=== PATIENT | female | born 1975 | race Caucasian/White ===

== ENCOUNTER 2025-05-19 15:40 | Emergency (ER) | payer OTHER, MEDICAID ==
[~2025-05-19] VITALS: Ht 165.1 cm; Wt 84.0 kg
[2025-05-19 15:43] VITALS: O2SAT 97
[2025-05-19 16:30] LABS: BASOPHILS % 0.4 % (0.0-2.0); EOSINOPHILS % 0.2 % (0.0-5.0); HEMATOCRIT. 45.1 % (36.0-48.0); HEMOGLOBIN. 14.9 g/dL (12.0-16.0); LYMPHOCYTES % 9.5 % (20.0-50.0); MEAN CORPUSCULAR HEMOGLOBIN 29.5 pg (28.0-32.0); MEAN CORPUSCULAR VOLUME 89.4 fL (81.0-99.0); MEAN PLATELET VOLUME 9.4 fl (7.4-10.4); MONOCYTES % 4.8 % (2.0-8.0); NEUTROPHILS % 85.1 % (40.0-76.0); PLATELET 229 x1000/uL (130-400); RED BLOOD CELL COUNT 5.05 mill/uL (4.2-5.4); RED CELL DISTRIBUTION WIDTH 14.7 % (11.6-14.6); WHITE BLOOD COUNT 12.2 x1000/uL (4.5-11.0)
[2025-05-19 16:33] LABS: CHLORIDE 107 mEq/L (98-107); POTASSIUM 3.5 mEq/L (3.5-5.1); SODIUM 137 mEq/L (136-145)
[2025-05-19 16:34] LABS: CALCIUM 10.7 mg/dL (8.7-10.4); CARBON DIOXIDE 22 mEq/L (21-32)
[2025-05-19 16:38] LABS: CREATININE 0.8 mg/dL (0.6-1.0)
[2025-05-19 16:39] LABS: ETHANOL BLOOD < 10 mg/dL (<10); GLUCOSE 120 mg/dL (70-105); HCG SCREEN NEGATIVE; UREA NITROGEN BLOOD 14 mg/dL (9-23)
[2025-05-19 16:40] LABS: ALANINE AMINOTRANSFERASE 20 IU/L (10-49); ALBUMIN 5.1 g/dL (3.2-4.8); ASPARTATE AMINOTRANSFERASE 25 IU/L (<34)
[2025-05-19 16:41] LABS: BILIRUBIN DIRECT 0.1 mg/dL (<=3.0); BILIRUBIN TOTAL 0.4 mg/dL (0.1-1.0); PROTEIN TOTAL 8.4 g/dL (6.0-8.3)
[2025-05-19] MEDS: SODIUM CHLORIDE 0.9% 1,000 ML IV ONE (16:55)
[2025-05-19] MEDS: ONDANSETRON HCL 4MG/2ML INJ IV STA (16:55)
[2025-05-19] MEDS: MORPHINE SULFATE 4 MG/ML INJ (FOR IV/IM USE) IV STA (16:55)
[2025-05-19] MEDS ORDERED: DICYCLOMINE 10 MG/5 ML ORAL SYR PO STA (17:16)
[2025-05-19] MEDS: ONDANSETRON 4MG ODT PO STA (17:43)
[2025-05-19] MEDS: MAGNESIUM/ALUMINUM HYDROXIDE/SIMETHICONE 30ML UDC PO STA (17:43)
[2025-05-19] MEDS: FAMOTIDINE 20MG TABLET PO ONE (17:43)
[2025-05-19] MEDS: DICYCLOMINE HCL 10MG CAPSULE PO NR (17:44)
[2025-05-19 17:51] LABS: PROTHROMBIN TIME 10.8 sec (9.6-11.0)
[2025-05-19 20:16] LABS: CLARITY URINE TURBID (CLEAR); COLOR URINE DARK YELLOW (YELLOW); GLUCOSE URINE NEGATIVE (NEGATIVE); KETONES URINE NEGATIVE (NEGATIVE); LEUKOCYTE ESTERASE URINE 2+ (NEGATIVE); NITRITE URINE NEGATIVE (NEGATIVE); OCCULT BLOOD URINE 3+ (NEGATIVE); PROTEIN URINE 2+ (NEGATIVE); SPECIFIC GRAVITY URINE 1.031 (1.005-1.030)
[2025-05-19 20:28] LABS: BACTERIA URINE 1+; RBC URINE 25-50 /hpf (0-2); SQUAMOUS EPITHELIAL CELL URINE 1+ /lpf (RARE/1+); WBC URINE 15-25 /hpf (0-2)
[2025-05-19 20:31] LABS: *AMPHETAMINES SCREEN URINE NEGATIVE (NEGATIVE); *BARBITURATES SCREEN URINE NEGATIVE (NEGATIVE); *BENZODIAZEPINES SCREEN URINE NEGATIVE (NEGATIVE); *COCAINE SCREEN URINE NEGATIVE (NEGATIVE)
[2025-05-19 20:32] LABS: CANNABINOID URINE SCREEN NEGATIVE (NEGATIVE); ECSTASY MDMA SCREEN URINE NEGATIVE (NEGATIVE); METHADONE URINE SCREEN NEGATIVE (NEGATIVE); OPIATES URINE SCREEN PRESUMPTIVE POSITIVE (NEGATIVE); PHENCYCLIDINE URINE SCREEN NEGATIVE (NEGATIVE)
[2025-05-19 21:49] VITALS: BP 105/68; PULSE 70; RESP 16; O2SAT 99
[2025-05-19] MEDS ORDERED: CEFP200T14 MT (22:07)
[2025-05-19] MEDS ORDERED: IBUP-2029 MT (22:07)
== END 2025-05-19 22:37 | disposition home or self-care (01) ==
LOC: ER 15:40
DX: D25.9 Leiomyoma of uterus, unspecified (principal); N39.0 Urinary tract infection, site not specified; R10.31 Right lower quadrant pain; Z79.899 Other long term (current) drug therapy
CPT/HCPCS: 80076; 80305; 80048; 81003; 80320; 84703; 83690; 85025; 85610; 87086; 36415; 74176; 76830; 76856; 93005; 96361; 96374; 96375; 99285; Q0162; J2405; J2270; J7030; Z7610 ×3; G0480